=== PATIENT | female | born 1965 | race Caucasian/White ===

== ENCOUNTER → 2016-08-16 | Day surgery (SDC) | payer OTHER ==
[~2016-08-16] MED LIST: ALBU1AER INH; BUPR-197 PO; LACTATED RINGER'S 1,000 ML BAG IV ONE; OXCA300T2 PO; PROPOFOL 200 MG/20 ML AMP IV ONE; TYLE500T PO; ZITH250T PO
--- NOTE | 2016-08-16 10:47 | GIPROC ---
[facility] [address] [facility], [address] EGD PROCEDURE REPORT EXAM DATE: 08/16/2016 PATIENT NAME: Rosario Burgess MR #: [id number] BIRTHDATE: 1965 ATTENDING: Ronni Carvajal MD ORDER #: [id number] CASING OPERATOR: Amy Galeano RN STATUS: outpatient INDICATIONS: The patient is a 50 yr old female here for an EGD due to anemia PROCEDURE PERFORMED: EGD w/ biopsy MEDICATIONS: None, Per Anesthesia, None, and Per Anesthesia. TOPICAL ANESTHETIC: CONSENT: The patient understands the risks and benefits of the procedure and understands that these risks include, but are not limited to: sedation, allergic reaction, infection, perforation and/or bleeding. Alternative means of evaluation and treatment include, among others: physical exam, x-rays, and/or surgical intervention. The patient elects to proceed with this endoscopic procedure. medical equipment was checked for proper function. Hand hygiene and appropriate measures for infection prevention was taken. After the risks, benefits and alternatives of the procedure were thoroughly explained, Informed consent was verified, confirmed and timeout was successfully executed by the treatment team. The patient was anesthetized with topical anesthesia and the EC-[id number] ([id number]) and [id number] ([id number]) endoscope was introduced through the mouth and advanced to the second portion of the duodenum. Retroflexed views revealed no abnormalities The gastroscope was then slowly withdrawn and removed. STOMACH: A small non-bleeding, round, shallow and clean-based ulcer was found in the gastric antrum. Biopsies were taken at edge of the ulcer and at the center of the ulcer. There was erythematous moderate gastritis in the gastric body and gastric antrum. The endoscopy was otherwise normal. DUODENUM: The duodenal mucosa appeared normal. Cold forcep biopsies were taken in the second portion. ADVERSE EVENTS: There were no complications. IMPRESSIONS: 1. Small ulcer was found in the gastric antrum; biopsies were taken 2. There was erythematous gastritis in the gastric body and gastric antrum 3. Normal endoscopy otherwise 4. Normal duodenal mucosa 5. Retroflexed views revealed no abnormalities RECOMMENDATIONS: 1. Await biopsy results. Biopsy results will not be ready for 7-10 days. If you don't hear from us in two weeks, call our office for biopsy results. 2. Follow-up: GI clinic 4 week(s) 3. Avoid NSAIDS 4. Protonix 40mg Q AM PATIENT CONDITION: stable DISPOSITION: Home REPEAT EXAM: Return 2 months EGD Ronni Carvjaal MD eSigned: Ronni Carvajal MD 08/16/2016 10:47 AM cc: [facility] PATIENT NAME: Rosario Burgess MR#: [id number]
== END | disposition home or self-care (01) ==
LOC: ESDC 08:18
PROVIDERS: ATTEND Internal Medicine Gastroenterology
DX: D64.9 Anemia, unspecified (principal); K25.9 Gastric ulcer, unspecified as acute or chronic, without hemorrhage or perforation; K29.70 Gastritis, unspecified, without bleeding
CPT/HCPCS: 00740; 43239; 88305; 88312; J3010; J7120; 88307

== ENCOUNTER 2017-07-11 00:49 | Emergency (ER) | payer OTHER ==
[~2017-07-11 00:49] MED LIST changes: -LACTATED RINGER'S 1,000 ML BAG IV ONE; -PROPOFOL 200 MG/20 ML AMP IV ONE
[2017-07-11 00:58] VITALS: BP 129/60; PULSE 89; RESP 16; TEMP 98.2; O2SAT 97
--- NOTE | 2017-07-11 01:12 | PD ---
HPI Chief Complaint: Skin Problem Time Seen by Provider: 01:09 Travel History International Travel<30 days: No Contact w/Intl Traveler<30days: No Traveled to known affect area: No History of Present Illness HPI The patient is a 51 year old female who presents to the [facility] emergency department with a history of right ankle pain that began at the beginning of May and was associated with numbness and redness. Patient reports that she was already being followed by [employer] for an Achilles tendinitis of the left ankle. She reports that she discuss this with them and x-rays and ultrasound were done reportedly unremarkable. She was told that it may be bruised. She reports that she is continued to have pain at the site, however 2-3 weeks ago she began to develop open wounds to the medial aspect of the right ankle. She reports that the open wounds are worsening with time. She reports that now she has drainage from the wounds. She reports that she has been applying a triple antibiotic ointment and cleaning it with peroxide as well as bandaging it daily without improvement. She reports that today the pain became worse and she noticed that she was developing worsening redness and swelling. The Patient's primary care physician is . She denies having any recent injury to her ankle. She reports that 20 years ago she did fracture her right ankle and had ORIF. She reports that she continues to have hardware in place. She denies having any known recent fevers, worsening cough or congestion, neck pain, chest pain, shortness of breath, abdominal pain, vomiting, urinary symptoms, or neurologic symptoms. The patient reports that she has developed diarrhea this evening. She reports that she has had 5 episodes so far. She reports that the stool is loose and brown in color. She denies any blood or mucus in her stool LMP: Status post hysterectomy. [facility] Past Medical History Narrative Medical The patient's past medical history is significant for history of anemia, thrombocytopenia, prior history of alcohol abuse, however she quit in 2013, history of bowel perforation status post resection, colostomy placement and then reversal in 1996, history of tobacco use, history of Achilles tendinitis. Bipolar Disorder: Yes Diminished Hearing: No Respiratory: Yes Immunizations Current: Yes ?: Not Past Surgical History Narrative Surgical The patient's past surgical history is significant for past surgical history significant for a bowel perforation status post partial colon resection, colostomy placement and then reversal, history of a hysterectomy, and right ankle ORIF Abdominal Surgery: Yes (colon resection in 97, reversal of colostomy in 97 then revised in 98 [facility]) Hysterectomy: Yes Oral Surgery: Yes (RIGHT ANKLE PINS/PLATES) Social History Alcohol Use: No (QUIT) Tobacco Use: Yes (04/19 PPD) Substance Use: No (QUIT) Allergies-Medications (Allergen,Severity, Reaction): Coded Allergies: No Known Allergies (Verified Adverse Reaction, Unknown, 07/11/17) Reported Meds & Prescriptions Reported Meds & Active Scripts Active Reported Lamotrigine 200 Mg Tab 200 Mg PO BID Wellbutrin SR 12 HR (Bupropion HCl) 150 Mg Tab 150 Mg PO Q12HR Review of Systems Except as stated in HPI: all other systems reviewed are Neg General / Constitutional: No: Fever Eyes: No: Visual changes HENT: No: Headaches Cardiovascular: No: Chest Pain or Discomfort Respiratory: No: Shortness of Breath Gastrointestinal: Positive: Diarrhea, Changes in Bowel Habits, No: Nausea, Vomiting, Abdominal Pain, Hematochezia, Indigestion, Loss of Appetite Genitourinary: No: Dysuria Musculoskeletal: Positive: Myalgias, Arthralgias, Edema, Pain Skin: Positive Rash Neurologic: No: Weakness, Focal Abnormalities, Change in Mentation, Slurred Speech Psychiatric: No: Depression Endocrine: No: Polydipsia Hematologic/Lymphatic: No: Easy Bruising Physical Exam Narrative General: The patient is a well-developed well-nourished female in no acute distress. Head and Neck exam: Head is normocephalic atraumatic. Eyes: EOMI, pupils are equal round and reactive to light. Nose: Midline septum with pink mucous membranes Mouth: Dentition unremarkable. Moist mucus membranes. Posterior oropharynx is not erythematous. No tonsillar hypertrophy. Uvula midline. Airway patent. Neck: No palpable lymphadenopathy. No nuchal rigidity. No thyromegaly. Cardiovascular: Regular rate and rhythm without murmurs, gallops, or rubs. Lungs: Clear to auscultation bilaterally. No wheezes, rhonchi, or rales. Abdomen: Soft, without tenderness to palpation in all 4 quadrants of the abdomen. No guarding, rebound, or rigidity. Normal bowel sounds are audible. No tenderness on palpation of McBurney's point. Negative Baez sign. Extremities: No clubbing, cyanosis, or edema. 2+ pulses in all 4 extremities. On examination of the patient's right ankle, the patient is noted to have an area of redness, swelling, and open wound along the medial aspect of the right ankle. There is yellow drainage noted. This is cultured with a wound culture. Back: No spinous process tenderness to palpation. No costovertebral angle tenderness to palpation. Neurologic Exam: Grossly nonfocal. Skin Exam: No other rash noted. Intact skin that is warm and dry. Data Data Last Documented VS Vital Signs Date Time Temp Pulse Resp B/P (MAP) Pulse Ox O2 Delivery O2 Flow Rate FiO2 07/11/17 01:35 80 16 146/65 (92) 99 Room Air 07/11/17 00:58 98.2 Orders Orders Electrocardiogram (07/11/17:29) Complete Blood Count With Diff (07/11/17:) Comprehensive Metabolic Panel (07/11/17) Prothrombin Time / Inr (Pt) (07/11/17) Act Partial Throm Time (Ptt) (07/11/17) C-Reactive Protein (Crp) (07/11/17:) Lipase (07/11/17) Urinalysis - C+S If Indicated (07/11/17) Magnesium (Mg) (07/11/17:29) Wound Culture And Gram Stain (07/11/17:) Chest, Single Ap (07/11/17:) Iv Access Insert/Monitor (07/11/17) Ecg Monitoring (07/11/17) Oximetry (07/11/17:29) Ankle, Complete ([id number]) (07/11/17:29) Cefazolin 2 Gm Premix (Ancef 2 Gm Premix (07/11/17 01:45) Clindamycin 600 Mg/Ns Premix (Cleocin 60 (07/11/17 01:45) Sodium Chlorid 0.9% 500 Ml Inj (Ns 500 M (07/11/17 01:45) Ketorolac Inj (Toradol Inj) (07/11/17 01:45) Labs Laboratory Tests Test 3/26/18 01:50 07/11/17 02:15 White Blood Count 6.2 TH/MM3 Red Blood Count 3.65 MIL/MM3 Hemoglobin 11.8 GM/DL Hematocrit 34.8 % Mean Corpuscular Volume 95.5 FL Mean Corpuscular Hemoglobin 32.3 PG Mean Corpuscular Hemoglobin Concent 33.8 % Red Cell Distribution Width 15.0 % Platelet Count 111 TH/MM3 Mean Platelet Volume 8.9 FL Neutrophils (%) (Auto) 54.0 % Lymphocytes (%) (Auto) 31.6 % Monocytes (%) (Auto) 12.0 % Eosinophils (%) (Auto) 1.9 % Basophils (%) (Auto) 0.5 % Neutrophils # (Auto) 3.4 TH/MM3 Lymphocytes # (Auto) 2.0 TH/MM3 Monocytes # (Auto) 0.7 TH/MM3 Eosinophils # (Auto) 0.1 TH/MM3 Basophils # (Auto) 0.0 TH/MM3 CBC Comment DIFF FINAL Differential Comment Prothrombin Time 10.3 SEC Prothromb Time International Ratio 1.0 RATIO Activated Partial Thromboplast Time 29.6 SEC Blood Urea Nitrogen 17 MG/DL Creatinine 1.15 MG/DL Random Glucose 85 MG/DL Total Protein 7.4 GM/DL Albumin 3.6 GM/DL Calcium Level 8.8 MG/DL Magnesium Level 1.5 MG/DL Alkaline Phosphatase 120 U/L Aspartate Amino Transf (AST/SGOT) 37 U/L Alanine Aminotransferase (ALT/SGPT) 28 U/L Total Bilirubin 0.6 MG/DL Sodium Level 139 MEQ/L Potassium Level 3.5 MEQ/L Chloride Level 103 MEQ/L Carbon Dioxide Level 27.2 MEQ/L Anion Gap 9 MEQ/L Estimat Glomerular Filtration Rate 50 ML/MIN C-Reactive Protein 4.10 MG/DL Lipase 134 U/L Urine Color YELLOW Urine Turbidity CLEAR Urine pH 6.0 Urine Specific Steele 1.042 Urine Protein TRACE mg/dL Urine Glucose (UA) NEG mg/dL Urine Ketones NEG mg/dL Urine Occult Blood NEG Urine Nitrite NEG Urine Bilirubin NEG Urine Urobilinogen 2.0 MG/DL Urine Leukocyte Esterase NEG Urine RBC 1 /hpf Urine WBC 1 /hpf Urine Squamous Epithelial Cells 2 /hpf Urine Bacteria RARE /hpf Microscopic Urinalysis Comment CULT NOT INDICATED MDM Medical Decision Making Medical Screen Exam Complete: Yes Emergency Medical Condition: Yes Medical Record Reviewed: Yes Differential Diagnosis Cellulitis, versus abrasions, versus pressure ulcer, versus tinea corporis Narrative Course During the course of the patient's emergency department visit, the patient's history, examination, and differential diagnosis were reviewed with the patient. The patient was placed on a groundwater monitoring technician with oximetry and frequent blood pressure monitoring. The patient had IV access obtained and blood work sent for analysis. An x-ray of the right ankle was ordered. The patient was initially provided Ancef 2 g IV, clindamycin 600 mg IV, Toradol 15 mg IV for pain, normal saline 500 mL IV fluid bolus. The patient's laboratory studies were reviewed and remarkable for a white count of 6.2, hemoglobin 11.8, platelets 111, 12 monocytes. The patient has a history of thrombocytopenia. CMP is remarkable for creatinine 1.15, GFR 50, alk phos 120, C-reactive protein 4.10, lipase 134, PT 10.3, PTT 29.6, urinalysis shows specific gravity that is elevated, rare bacteria, culture not indicated. Radiology studies were reviewed and remarkable for a chest x-ray that shows minimal left lower lobe infiltrate versus atelectasis. An ankle x-ray that reveals previous internal fixation, soft tissue swelling without fracture. The patient will be discharged home with close follow-up with her primary care physician for reexamination in the next 1-2 days for improvement on antibiotic. The patient will be discharged home with Bactroban ointment and instructed to discontinue triple antibiotic ointment. She is instructed to do dressing changes twice daily. The patient is also given oral antibiotic of Bactrim and Keflex. The patient is resting comfortably and feels better, is alert and in no distress. The patient's results and examination findings were discussed with the patient. The repeat examination is unremarkable and benign. The history, exam, diagnostic testing, and current condition do not suggest any significant pathology to warrant further testing, continued ED treatment, admission, or surgical evaluation at this point. The vital signs have been stable. The patient does not have uncontrollable pain, intractable vomiting, or other significant symptoms. The patient's condition is stable and appropriate for discharge. The patient will pursue further outpatient evaluation with a primary care physician or other designated or consulting physician as indicated in the discharge instructions. The patient expressed understanding and was agreeable with this plan. Diagnosis Primary Impression: Cellulitis Qualified Codes: L03.115 - Cellulitis of right lower limb Additional Impression: Wounds, multiple open, lower extremity Qualified Codes: S81.801A - Unspecified open wound, right lower leg, initial encounter Referrals: Primary Care Physician 2 days Patient Instructions: Cellulitis (ED), General Instructions Additional Instructions: The patient will be discharged home with close follow-up with her primary care physician for reexamination in the next 1-2 days for improvement on antibiotic. The patient will be discharged home with Bactroban ointment and instructed to discontinue triple antibiotic ointment. She is instructed to do dressing changes twice daily. The patient is also given oral antibiotic of Bactrim and Keflex. Med/Other Pt SpecificInfo: Prescription(s) given Scripts Cephalexin (Keflex) 500 Mg Capsule 500 MG PO Q6H for Infection, #39 CAP 0 Refills Prov: Berna Burgess MD 07/11/17 Sulfamethoxazole-Trimethoprim (Bactrim DS) 800-160 Mg Tab 1 TAB PO BID for Infection, #20 TAB 0 Refills Prov: Berna Burgess MD 07/11/17 Mupirocin Topical (Bactroban Topical) 22 Gm Cream 1 APPLIC TOPICAL TID for Mgmt Bacterial Infection for 10 Days, #1 TUBE 0 Refills Prov: Berna Burgess MD 07/11/17 Disposition: 01 DISCHARGE HOME Condition: Stable Berna Burgess MD Jul 11, 2017 01:12
[2017-07-11] MEDS ORDERED: BUPR150CR PO (01:34)
[2017-07-11] MEDS ORDERED: LAMO200T PO (01:34)
[2017-07-11 01:35] VITALS: BP 146/65; PULSE 16; PULSE 80; RESP 16; O2SAT 99
[2017-07-11] MEDS ORDERED: CLINDAMYCIN 600 MG/NS PREMIX 50 ML IV ONE (01:45)
[2017-07-11] MEDS ORDERED: ceFAZolin 2 GM PREMIX 50 ML IV ONE (01:45)
[2017-07-11] MEDS ORDERED: KETOROLAC TROMETHAMINE 30 MG/ML (IVP) VIAL IV PUSH ONE (01:45)
[2017-07-11] MEDS ORDERED: SODIUM CHLORID 0.9% 500 ML INJ 500 ML IV ONE (01:45)
[2017-07-11 02:05] LABS: AUTOMATED NEUTROPHIL # 3.4 TH/MM3 (1.8-7.7); BASOPHIL % 0.5 % (0.0-2.0); EOSINOPHIL # 0.1 TH/MM3 (0-0.4); EOSINOPHIL % 1.9 % (0.0-4.0); HEMATOCRIT 34.8 % (35.0-46.0); HEMOGLOBIN 11.8 GM/DL (11.6-15.3); LYMPH % 31.6 % (9.0-44.0); MEAN CELL VOLUME 95.5 FL (80.0-100.0); MEAN CORPUSCULAR HEMOGLOBIN 32.3 PG (27.0-34.0); MEAN CORPUSCULAR HGB CONC 33.8 % (32.0-36.0); MEAN PLATELET VOLUME 8.9 FL (7.0-11.0); MONOCYTE # 0.7 TH/MM3 (0-0.9); PLATELET COUNT 111 TH/MM3 (150-450); RED BLOOD COUNT 3.65 MIL/MM3 (4.00-5.30); WHITE BLOOD COUNT 6.2 TH/MM3 (4.0-11.0)
--- NOTE | 2017-07-11 02:09 | RADRPT ---
EXAM DATE/TIME: 07/11/2017 01:40 [facility] COMPARISON: No previous studies available for comparison. INDICATIONS : Redness, pain, and ulcers on the right ankle for three weeks with no trauma. MEDICAL HISTORY : None. SURGICAL HISTORY : None. ENCOUNTER: Initial ACUITY: 3 weeks PAIN SCORE: 10/10 LOCATION: Right posterior ankle FINDINGS: Three view exam was performed of the right ankle. Previous internal fixation along the fibula and med ial malleolus. Diffuse soft tissue swelling. Degenerative changes within the ankle mortise.. Bony mi neralization is normal. CONCLUSION: 1. Previous internal fixation. 2. Soft tissue swelling without fracture. Suman West MD on July 11, 2017 at 2:06 Board Certified Radiologist. This report was verified electronically.
[2017-07-11 02:13] LABS: PROTHROMBIN TIME - PATIENT 10.3 SEC (9.8-11.6)
[2017-07-11 02:20] LABS: ALBUMIN 3.6 GM/DL (3.4-5.0); ALT (GPT) 28 U/L (10-53); AST (GOT) 37 U/L (15-37); BICARBONATE 27.2 MEQ/L (21.0-32.0); BLOOD UREA NITROGEN 17 MG/DL (7-18); CALCIUM 8.8 MG/DL (8.5-10.1); CHLORIDE 103 MEQ/L (98-107); CREATININE 1.15 MG/DL (0.50-1.00); GLOMERULAR FILTRATION RATE 50 ML/MIN (>89); GLUCOSE,RANDOM 85 MG/DL (74-106); MAGNESIUM 1.5 MG/DL (1.5-2.5); SODIUM (NA) 139 MEQ/L (136-145)
[2017-07-11 02:22] LABS: ALKALINE PHOSPHATASE 120 U/L (45-117); TOTAL BILIRUBIN ADULT 0.6 MG/DL (0.2-1.0); TOTAL PROTEIN 7.4 GM/DL (6.4-8.2)
[2017-07-11 02:27] LABS: BACTERIA, URINE RARE /hpf; BILIRUBIN, URINE NEG (NEG); BLOOD, URINE NEG (NEG); GLUCOSE,URINE NEG (NEG); KETONE, URINE NEG (NEG); NITRITE,URINE NEG (NEG); SQUAMOUS EPITHELIAL CELL URINE 2 /hpf (0-5); URINE COLOR YELLOW (YELLW/STRAW); URINE LEUKOCYTE ESTERASE NEG (NEG)
--- NOTE | 2017-07-11 02:32 | RADRPT ---
EXAM DATE/TIME: 07/11/2017 01:37 [facility] COMPARISON: No previous studies available for comparison. INDICATIONS : Cough. MEDICAL HISTORY : None. SURGICAL HISTORY : None. ENCOUNTER: Initial ACUITY: 1 day PAIN SCORE: 0/10 LOCATION: Bilateral chest FINDINGS: A single view of the chest demonstrates minimal infiltrate left lower lobe. Right lung clear. Heart n ormal size The cardiomediastinal contours are unremarkable. Osseous structures are intact. CONCLUSION: Minimal left lower lobe infiltrate. Suman West MD on July 11, 2017 at 2:29 Board Certified Radiologist. This report was verified electronically.
[2017-07-11] MEDS ORDERED: BACT800T5 PO (03:19)
[2017-07-11] MEDS ORDERED: CEPH-460 PO (03:19)
[2017-07-11] MEDS ORDERED: MUPI2%T TOPICAL (03:19)
[2017-07-11] MEDS ORDERED: HYDR-3516 PO (03:25)
[2017-07-11] MEDS ORDERED: ACETAMINOPHEN/HYDROcodone 325 MG/5 MG TAB PO ONE (03:30)
--- NOTE | 2017-07-12 00:17 | EKG ---
Date Performed: 07/11/2017 Time Performed: 01:50:45 PTAGE: 51 years EKG: Sinus rhythm MODERATE ST DEPRESSION ABNORMAL ECG PREVIOUS TRACING : 07/06/2003 21.45 DOCTOR: June Armstrong Interpretating Date/Time 07/12/2017 00:08:40
== END 2017-07-11 04:23 | disposition home or self-care (01) ==
LOC: NEPC 00:49
DX: L03.115 Cellulitis of right lower limb (principal); F17.200 Nicotine dependence, unspecified, uncomplicated; F31.9 Bipolar disorder, unspecified; Z79.899 Other long term (current) drug therapy
CPT/HCPCS: 71045; 73610; 80053; 81001; 83690; 83735; 85025; 85610; 85730; 86140; 86403; 87070; 87186; 93005; 96365; 96366; 96368; 96375; 99285; J0690; J1885; J7040